=== PATIENT | male | born 1980 | race Two or more races ===

== ENCOUNTER 2020-04-23 03:15 | Emergency (ER) | payer SELFPAY ==
[~2020-04-23] VITALS: Ht 175.3 cm; Wt 81.6 kg
[2020-04-23] MEDS ORDERED: LORAZEPAM 1 MG TABLET ONE (03:41)
--- NOTE | 2020-04-23 03:41 | NUR ---
PT AAOX4. AMBULATORY WITH STEADY GAIT. BIBSELF C/O MID CHEST PAIN AND PALPITATION RADIATING TO LEFT ARM X2 HOURS. PT SEEMS TO BE ANXIOUS. VSS. PLACED IN BED 3, ON MONITOR AND PULSE OX. MD AT BEDSIDE FOR EVAL.
--- NOTE | 2020-04-23 03:52 | NUR ---
CHICKEN BONER AT BEDSIDE
[2020-04-23] MEDS ORDERED: LORAZEPAM 1 MG TABLET PO ONE (04:00)
[2020-04-23 04:08] LABS: BASOPHILS % (AUTO) 0.4 % (0.0-2.0); EOSINOPHILS % (AUTO) 0.6 % (0.0-6.0); HEMATOCRIT 42 % (39-51); HEMOGLOBIN 14.3 g/dL (13.5-17.5); LYMPHOCYTES # (AUTO) 2.2 /CMM (0.8-4.8); LYMPHOCYTES % (AUTO) 26.4 % (20.0-44.0); MEAN CORPUSCULAR HGB CONC 34 g/dl (31.0-36.0); MEAN CORPUSCULAR VOLUME 91 fL (80-96); MONOCYTES # (AUTO) 0.9 /CMM (0.1-1.30); MONOCYTES % (AUTO) 10.5 % (2.0-12.0); NEUTROPHILS # (AUTO) 5.1 /CMM (1.8-8.9); NEUTROPHILS % (AUTO) 62.1 % (43.0-81.0); PLATELET COUNT (AUTO) 276 /CMM (150-450); RED BLOOD CELL COUNT(AUTO) 4.64 MIL/uL (4.5-6.0); WHITE BLOOD COUNT (AUTO) 8.2 K/uL (4.3-11.0)
[2020-04-23 04:18] LABS: CALCIUM, SERUM 8.8 mg/dL (8.5-10.1); CARBON DIOXIDE 24 mmol/L (21-32); CHLORIDE 99 mmol/L (98-107); GLUCOSE 108 mg/dL (74-106); POTASSIUM 3.4 mmol/L (3.5-5.1); SODIUM SERUM 136 mmol/L (136-145); UREA NITROGEN, BLOOD 18 mg/dL (7-18)
--- NOTE | 2020-04-23 04:30 | NUR ---
XRAY AT BEDSIDE
--- NOTE | 2020-04-23 04:43 | NUR ---
Patient is resting comfortably in bed with eyes closed. Easily aroused. VSS.
--- NOTE | 2020-04-23 04:54 | NUR ---
Patient discharged to home in stable condition. Written and verbal after care instructions given. Patient verbalizes understanding of instruction. ambulatory with a steady gait
[2020-04-23 04:58] VITALS: BP 147/84
== END 2020-04-23 04:58 | disposition home or self-care (01) ==
LOC: ER 03:21
DX: F41.9 Anxiety disorder, unspecified (principal)
CPT/HCPCS: 36415; 71045-TC; 80048-TC; 84484-TC; 85025-TC